=== PATIENT | male | born 1990 | race Caucasian/White ===

== ENCOUNTER 2016-11-22 10:04 | Emergency (ER) | payer OTHER ==
[2016-11-22] MEDS ORDERED: ONDANSETRON 4 MG ORAL DISINTEGRATING TAB (S0181) As Ordered ONE (10:29)
--- NOTE | 2016-11-22 11:08 | EDDOCDS ---
Nurse's Notes [facility] Name: Masood Young Age: 26 yrs Sex: Male : 1990 Arrival Date: 11/22/2016 Time: 10:04 Bed TR7 Private MD: DEJUSTIN BADILLO Diagnosis: Nausea and vomiting;Diarrhea, unspecified Presentation: 11/22 10:09 Presenting complaint: Patient states: he has had vomiting and diarrhea since this am. kcs Adult Sepsis Screening: The patient does not have new or worsening altered mentation. Patient's respiratory rate is less than 22. Systolic blood pressure is greater than 100. Patient has a qSOFA score of 0- Negative Sepsis Screen. Suicide/Homicide risk assessment- the patient denies having any suicidal and/or homicidal ideations and does not present with any other emotional, behavioral or mental health complaints. 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 Transition of care: patient was not received from another setting of care. 10:09 Acuity: MIRIAN Level 4 kcs 10:09 Method Of Arrival: Walkin/Carried/Asstd kcs Triage Assessment: 10:11 General: Appears comfortable, well developed, well nourished, well groomed, Behavior is kcs cooperative, pleasant. Pain: Denies pain. HIV screening NA for this visit active duty . Neurological: Level of Consciousness is awake, alert. Respiratory: Airway is patent Respiratory effort is even, unlabored, Respiratory pattern is regular, symmetrical. GI: Reports diarrhea, nausea, vomiting, Denies cramping. Derm: Skin is intact, is healthy with good turgor, Skin is dry, Skin is normal. Historical: - Allergies: No known drug Allergies; - Home Meds: 1. none - PMHx: none; - PSHx: none; - Social history: Smoking status: Patient states was never smoker of tobacco. No barriers to communication noted, The patient speaks fluent Cymraes. - Family history: Not pertinent. - : The pt / caregiver states he / she is not on anticoagulants. Home medication list is obtained from the patient. - Exposure Risk Screening:: None identified. Screenin:01 Screening information is obtained from the patient. Fall risk: No risks identified. bcj Assistance ADL's: requires no assistance with activities of daily living. Abuse/DV Screen: The patient / caregiver reports he/she is: not in a situation that causes fear, pain or injury. Nutritional screening: No deficits noted. Advance Directives: Currently, there is no health care proxy. home support is adequate. Assessment: 11:01 General: Appears in no apparent distress, comfortable, Behavior is cooperative. Pain: bcj Denies pain. GI: Abdomen is flat, non- distended Bowel sounds present X 4 quads. Abd is soft and non tender X 4 quads. Derm: Skin is pink, warm & dry. Vital Signs: 10:07 BP 163 / 101 RA Sitting (auto/lg); Pulse 88; Resp 16; Pulse Ox 98% ; Weight 92.99 kg; cmb Height 5 ft. 11 in. (180.34 cm); Pain 6/10; 10:07 BP 173 / 98 LA Sitting (auto/lg); Temp 98(O); cmb 10:07 Body Mass Index 28.59 (92.99 kg, 180.34 cm) cmb Vitals: 10:07 Log In Time: November 22, 2016 at 10:04. cmb ED Course: 10:06 Patient visited by Sosa Lopez. cmb 10:06 Patient moved to Waiting cmb 10:07 [facility] is Private Physician. cmb 10:08 Patient moved to Pre RCE cmb 10:10 Triage Initiated kcs 10:22 Patrick France PA is PHCP. btw 10:22 Rosy Camacho MD is Attending Physician. btw 10:22 Patient visited by Patrick France PA. btw 10:22 Patient moved to Triage 2 kcs 10:25 [facility] is Referral Physician. btw 10:49 Patient name changed from Masood\S\\S\Young\S\ to Masood\S\Dedrick\S\Young. EDMS 10:51 [facility] Payment Agreement was scanned into [employer] and attached to record. pm4 11:01 Appears agitated. Resting quietly. Awaiting disposition. bcj 11:01 Patient moved to TR7 ar3 11:01 The patient / caregiver is instructed regarding the plan of care and ED course. Patient bcj has correct armband on for positive identification. 11:01 No IV's were initiated during this patient's visit. No procedures done that require bcj assistance. 11:03 Patient visited by Leo Samuels RN. [facility] 11:08 Patient visited by Leo Samuels RN. [facility] Administered Medications: 10:30 Drug: Ondansetron ODT 4 mg [ondansetron 4 mg disintegrating tablet (1 tabs)] Route: PO; bcj Order Results: There are currently no results for this order. Outcome: 10:26 Discharge ordered by Provider. btw 11:01 Discharge Assessment: patient administered narcotics - no. The following High Risk j Discharge criteria are identified: None. Discharged to home ambulatory, with family. Condition: stable. No special radiology studies were completed. Property :Personal belongings accompany Pt. 11:08 Patient left the ED. [facility] Signatures: Dispatcher [employer] Myriam Ho RN RN Leo Kim RN RN Leslie Carmona, CASHIER CLERK CASHIER CLERK ar3 Patrick France PA PA btSosa Dennis Paul, Reg Reg pm4 MTDD
--- NOTE | 2016-11-22 11:08 | EDDOCDS ---
Physician Documentation [facility] Name: Masood Young Age: 26 yrs Sex: Male : 1990 Arrival Date: 11/22/2016 Time: 10:04 Bed TR7 [facility] Disposition: 11/22/16 10:26 Discharged to Home/Self Care. Impression: Nausea and vomiting, Diarrhea, unspecified. - Condition is Stable. - Discharge Instructions: Viral Gastroenteritis, [id number]. - Prescriptions for ZOFRAN ODT 4 mg - dissolve 1 tablet by ORAL route 4 times per day As needed do not chew, do not swallow whole; 10 tablet. - Medication Reconciliation, Local Pharmacy Hours form. - [facility]; When: Today; Reason: Further diagnostic work-up, Recheck today's complaints, Continuance of care. - Problem is new. - Symptoms are unchanged. Historical: - Allergies: No known drug Allergies; - Home Meds: 1. none - PMHx: none; - PSHx: none; - Social history: Smoking status: Patient states was never smoker of tobacco. No barriers to communication noted, The patient speaks fluent Egyptian. - Family history: Not pertinent. - : The pt / caregiver states he / she is not on anticoagulants. Home medication list is obtained from the patient. - Exposure Risk Screening:: None identified. Vital Signs: 11/22 10:07 BP 163 / 101 RA Sitting (auto/lg); Pulse 88; Resp 16; Pulse Ox 98% ; Weight 92.99 kg / cmb 205.01 lbs; Height 5 ft. 11 in. (180.34 cm); Pain 6/10; 10:07 BP 173 / 98 LA Sitting (auto/lg); Temp 98(O); cmb 10:07 Body Mass Index 28.59 (92.99 kg, 180.34 cm) cmb MDM: 10:25 Ondansetron ODT Oral Disintegrating Tablet 4 mg PO once ordered. btw 10:46 Financial registration complete. pm4 10:51 [facility] Payment Agreement was scanned into [employer] and attached to record. pm4 Administered Medications: 10:30 Drug: Ondansetron ODT 4 mg [ondansetron 4 mg disintegrating tablet (1 tabs)] Route: PO; [facility] Signatures: Myriam Brown RN RN kcs Johnson, Bruce, RN RN bcPatrick Monet PA PA btw Riky Yanez, Reg Reg pm4 The chart was reviewed and I authenticate all verbal orders and agree with the evaluation and treatment provided.Attachments: 10:51 [facility] Payment Agreement pm4 MTDD
--- NOTE | 2016-11-24 12:09 | EDDOCDS ---
Physician Documentation [facility] Name: Masood Young Age: 26 yrs Sex: Male : 1990 Arrival Date: 11/22/2016 Time: 10:04 Bed TR7 Private MD: [facility] Disposition: 11/22/16 10:26 Discharged to Home/Self Care. Impression: Nausea and vomiting, Diarrhea, unspecified. - Condition is Stable. - Discharge Instructions: Viral Gastroenteritis, [id number]. - Prescriptions for ZOFRAN ODT 4 mg - dissolve 1 tablet by ORAL route 4 times per day As needed do not chew, do not swallow whole; 10 tablet. - Medication Reconciliation, Local Pharmacy Hours form. - Follow up: [facility]; When: Today; Reason: Further diagnostic work-up, Recheck today's complaints, Continuance of care. - Problem is new. - Symptoms are unchanged. Historical: - Allergies: No known drug Allergies; - Home Meds: 1. none - PMHx: none; - PSHx: none; - Social history: Smoking status: Patient states was never smoker of tobacco. No barriers to communication noted, The patient speaks fluent Kosovan. - Family history: Not pertinent. - : The pt / caregiver states he / she is not on anticoagulants. Home medication list is obtained from the patient. - Exposure Risk Screening:: None identified. Vital Signs: 11/22 10:07 BP 163 / 101 RA Sitting (auto/lg); Pulse 88; Resp 16; Pulse Ox 98% ; Weight 92.99 kg / cmb 205.01 lbs; Height 5 ft. 11 in. (180.34 cm); Pain 6/10; 10:07 BP 173 / 98 LA Sitting (auto/lg); Temp 98(O); cmb 10:07 Body Mass Index 28.59 (92.99 kg, 180.34 cm) cmb MDM: 10:25 Ondansetron ODT Oral Disintegrating Tablet 4 mg PO once ordered. btw 10:46 Financial registration complete. pm4 10:51 [facility] Payment Agreement was scanned into [employer] and attached to record. pm4 12:36 T-Sheet-- Draft Copy was scanned into [employer] and attached to record. gb Administered Medications: 10:30 Drug: Ondansetron ODT 4 mg [ondansetron 4 mg disintegrating tablet (1 tabs)] Route: PO; natasha Signatures: Myriam Brown RN RN Leo Kim RN RN Tricia Emery, Reg Reg gb Patrick France PA PA btw Riky Yanez, Reg Reg pm4 The chart was reviewed and I authenticate all verbal orders and agree with the evaluation and treatment provided.Attachments: 10:51 [facility] Payment Agreement pm4 12:36 T-Sheet-- Draft Copy gb Chart Complete MTDD
--- NOTE | 2016-11-24 12:09 | EDDOCDS ---
Physician Documentation [facility] Name: Masood Young Age: 26 yrs Sex: Male : 1990 Arrival Date: 11/22/2016 Time: 10:04 Bed TR7 Private MD: [facility] Disposition: 11/22/16 10:26 Discharged to Home/Self Care. Impression: Nausea and vomiting, Diarrhea, unspecified. - Condition is Stable. - Discharge Instructions: Viral Gastroenteritis, [id number]. - Prescriptions for ZOFRAN ODT 4 mg - dissolve 1 tablet by ORAL route 4 times per day As needed do not chew, do not swallow whole; 10 tablet. - Medication Reconciliation, Local Pharmacy Hours form. - Follow up: [facility]; When: Today; Reason: Further diagnostic work-up, Recheck today's complaints, Continuance of care. - Problem is new. - Symptoms are unchanged. Historical: - Allergies: No known drug Allergies; - Home Meds: 1. none - PMHx: none; - PSHx: none; - Social history: Smoking status: Patient states was never smoker of tobacco. No barriers to communication noted, The patient speaks fluent South Korean. - Family history: Not pertinent. - : The pt / caregiver states he / she is not on anticoagulants. Home medication list is obtained from the patient. - Exposure Risk Screening:: None identified. Vital Signs: 11/22 10:07 BP 163 / 101 RA Sitting (auto/lg); Pulse 88; Resp 16; Pulse Ox 98% ; Weight 92.99 kg / cmb 205.01 lbs; Height 5 ft. 11 in. (180.34 cm); Pain 6/10; 10:07 BP 173 / 98 LA Sitting (auto/lg); Temp 98(O); cmb 10:07 Body Mass Index 28.59 (92.99 kg, 180.34 cm) cmb MDM: 10:25 Ondansetron ODT Oral Disintegrating Tablet 4 mg PO once ordered. btw 10:46 Financial registration complete. pm4 10:51 [facility] Payment Agreement was scanned into [employer] and attached to record. pm4 12:36 T-Sheet-- Draft Copy was scanned into [employer] and attached to record. gb Administered Medications: 10:30 Drug: Ondansetron ODT 4 mg [ondansetron 4 mg disintegrating tablet (1 tabs)] Route: PO; natasha Signatures: Myriam Brown RN RN Leo Kim RN RN Tricia Emery, Reg Reg gb Patrick France PA PA btw Riky Yanez, Reg Reg pm4 The chart was reviewed and I authenticate all verbal orders and agree with the evaluation and treatment provided.Attachments: 10:51 [facility] Payment Agreement pm4 12:36 T-Sheet-- Draft Copy gb Chart Complete MTDD
--- NOTE | 2016-11-24 12:09 | EDDOCDS ---
Nurse's Notes [facility] Name: Masood Young Age: 26 yrs Sex: Male : 1990 Arrival Date: 11/22/2016 Time: 10:04 Bed TR7 Private MD: CAJUSTIN BADILLO Diagnosis: Nausea and vomiting;Diarrhea, unspecified Presentation: 11/22 10:09 Presenting complaint: Patient states: he has had vomiting and diarrhea since this am. kcs Adult Sepsis Screening: The patient does not have new or worsening altered mentation. Patient's respiratory rate is less than 22. Systolic blood pressure is greater than 100. Patient has a qSOFA score of 0- Negative Sepsis Screen. Suicide/Homicide risk assessment- the patient denies having any suicidal and/or homicidal ideations and does not present with any other emotional, behavioral or mental health complaints. 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 Transition of care: patient was not received from another setting of care. 10:09 Acuity: MIRIAN Level 4 kcs 10:09 Method Of Arrival: Walkin/Carried/Asstd kcs Triage Assessment: 10:11 General: Appears comfortable, well developed, well nourished, well groomed, Behavior is kcs cooperative, pleasant. Pain: Denies pain. HIV screening NA for this visit active duty . Neurological: Level of Consciousness is awake, alert. Respiratory: Airway is patent Respiratory effort is even, unlabored, Respiratory pattern is regular, symmetrical. GI: Reports diarrhea, nausea, vomiting, Denies cramping. Derm: Skin is intact, is healthy with good turgor, Skin is dry, Skin is normal. Historical: - Allergies: No known drug Allergies; - Home Meds: 1. none - PMHx: none; - PSHx: none; - Social history: Smoking status: Patient states was never smoker of tobacco. No barriers to communication noted, The patient speaks fluent [place]. - Family history: Not pertinent. - : The pt / caregiver states he / she is not on anticoagulants. Home medication list is obtained from the patient. - Exposure Risk Screening:: None identified. Screenin:01 Screening information is obtained from the patient. Fall risk: No risks identified. bcj Assistance ADL's: requires no assistance with activities of daily living. Abuse/DV Screen: The patient / caregiver reports he/she is: not in a situation that causes fear, pain or injury. Nutritional screening: No deficits noted. Advance Directives: Currently, there is no health care proxy. home support is adequate. Assessment: 11:01 General: Appears in no apparent distress, comfortable, Behavior is cooperative. Pain: bcj Denies pain. GI: Abdomen is flat, non- distended Bowel sounds present X 4 quads. Abd is soft and non tender X 4 quads. Derm: Skin is pink, warm & dry. Vital Signs: 10:07 BP 163 / 101 RA Sitting (auto/lg); Pulse 88; Resp 16; Pulse Ox 98% ; Weight 92.99 kg; cmb Height 5 ft. 11 in. (180.34 cm); Pain 6/10; 10:07 BP 173 / 98 LA Sitting (auto/lg); Temp 98(O); cmb 10:07 Body Mass Index 28.59 (92.99 kg, 180.34 cm) cmb Vitals: 10:07 Log In Time: November 22, 2016 at 10:04. cmb ED Course: 10:06 Patient visited by Sosa Lopez. cmb 10:06 Patient moved to Waiting cmb 10:07 [facility] is Private Physician. cmb 10:08 Patient moved to Pre RCE cmb 10:10 Triage Initiated kcs 10:22 Patrick France PA is PHCP. btw 10:22 Rosy Camacho MD is Attending Physician. btw 10:22 Patient visited by Patrick France PA. btw 10:22 Patient moved to Triage 2 kcs 10:25 [facility] is Referral Physician. btw 10:49 Patient name changed from Masood\S\\S\Young\S\ to Masood\S\Dedrick\S\Young. EDMS 10:51 [facility] Payment Agreement was scanned into [employer] and attached to record. pm4 11:01 Appears agitated. Resting quietly. Awaiting disposition. bcj 11:01 Patient moved to TR7 ar3 11:01 The patient / caregiver is instructed regarding the plan of care and ED course. Patient bcj has correct armband on for positive identification. 11:01 No IV's were initiated during this patient's visit. No procedures done that require bcj assistance. 11:03 Patient visited by Leo Samuels RN. j 11:08 Patient visited by Leo Samuels RN. j 11:31 Patient visited by Leo Samuels RN. [facility] 12:36 T-Sheet-- Draft Copy was scanned into [employer] and attached to record. gb Administered Medications: 10:30 Drug: Ondansetron ODT 4 mg [ondansetron 4 mg disintegrating tablet (1 tabs)] Route: PO; j Order Results: There are currently no results for this order. Outcome: 10:26 Discharge ordered by Provider. bt 11:01 Discharge Assessment: patient administered narcotics - no. The following High Risk j Discharge criteria are identified: None. Discharged to home ambulatory, with family. Condition: stable. No special radiology studies were completed. Property :Personal belongings accompany Pt. 11:08 Patient left the ED. [facility] Signatures: Dispatcher [employer] EDMyriam Winter RN RN [facility] Leo Samuels, RN RN [facility] Tricia Mo, Reg Reg gb Leslie Hummel, [employer] ar3 Patrick France PA PA btw Sosa Lopez cmb Riky Yanez, Reg Reg pm4 Chart Complete MTDD
== END 2016-11-22 11:08 | disposition home or self-care (01) ==
LOC: M ED 10:04
DX: R11.2 Nausea with vomiting, unspecified (principal); R19.7 Diarrhea, unspecified

== ENCOUNTER 2017-01-11 00:02 | Emergency (ER) | payer OTHER ==
[2017-01-11] MEDS ORDERED: HALOPERIDOL 5 MG/ML VIAL (J1630) As Ordered ONE (00:10)
[2017-01-11] MEDS ORDERED: LORazepam 2 MG/ML VIAL (J2060) As Ordered ONE (00:10)
[2017-01-11 00:36] LABS: MEAN CORPUSCULAR HEMOGLOBIN 29.6 pg (27.0-33.0); MEAN CORPUSCULAR HGB CONC 33.1 g/dl (32.0-36.5); MEAN CORPUSCULAR VOLUME 89.7 fl (80.0-96.0); RED CELL DISTRIBUTION WIDTH 13.7 % (11.5-14.5); WHITE BLOOD COUNT 9.7 K/mm3 (4.0-10.0)
[2017-01-11 00:57] LABS: CONTROL LINE INT CTR LINE PRESENT; METHADONE URINE NEGATIVE (NEGATIVE); TRICYCLIC ANTIDEPRESS URINE NEGATIVE (NEGATIVE)
[2017-01-11 01:10] LABS: ALBUMIN 4.3 GM/DL (3.2-5.2); ALBUMIN/GLOBULIN RATIO 1.19 (1.00-1.93); ALKALINE PHOSPHATASE 89 U/L (45-117); ALT/SGPT 43 U/L (12-78); ANION GAP 8 MEQ/L (8-16); AST/SGOT 43 U/L (15-37); BILIRUBIN,DIRECT 0.1 MG/DL (0.0-0.2); BILIRUBIN,TOTAL 0.2 MG/DL (0.2-1.0); BLOOD UREA NITROGEN 16 MG/DL (7-18); CALCIUM LEVEL 8.7 MG/DL (8.5-10.1); CARBON DIOXIDE LEVEL 28 MEQ/L (21-32); CHLORIDE LEVEL 106 MEQ/L (98-107); CREATININE FOR GFR 1.02 MG/DL (0.70-1.30); GLOMERULAR FILTRATION RATE > 60.0 (>60); GLUCOSE, FASTING 95 MG/DL (70-105); SODIUM LEVEL 142 MEQ/L (136-145); TOTAL PROTEIN 7.9 GM/DL (6.4-8.2)
--- NOTE | 2017-01-11 13:56 | EDDOCDS ---
Nurse's Notes [facility] Name: Masood Young Age: 26 yrs Sex: Male : 1990 Arrival Date: 01/11/2017 Time: 00:02 Bed [facility] Private MD: Diagnosis: Alcohol use, unspecified with intoxication Presentation: 01/11 00:29 Presenting complaint: per PD - were called to residence after patient made threats to j kill self. was wandering at home. pt admits to ETOH tonight. denies street drug us. denies self injury. was combative on arrival with police and staff. Mental Health Triage Level: Level 3: The patient displays assaultive behavior and at risk for imminent acting out. Adult Sepsis Screening: The patient does not have new or worsening altered mentation. Patient's respiratory rate is less than 22. Systolic blood pressure is greater than 100. Patient has a qSOFA score of 0- Negative Sepsis Screen. Suicide/Homicide risk assessment- Patient denies SI and HI but presents with another emotional, behavioral or other mental health complaint. The patient reports that he/she has not been admitted to an inpatient mental health facility in the last 30 days. The patient reports that he/she has a recent or current history of substance abuse. The patient reports that he/she has no prior history of suicide attempt and/or organized plan. The patient reports that he/she has experienced a significant life altering event in the last 30 days. The patient reports that he/she has adequate social support. The patient reports he/she has no significant chronic medical condition(s). 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 Transition of care: patient was not received from another setting of care. 00:29 Acuity: [facility] Level 3 [facility] 00:29 Method Of Arrival: Walkin[facility]ried[facility] Triage Assessment: 00:34 General: Appears distressed, Behavior is agitated, combative, uncooperative. Pain: j Denies pain. HIV screening NA for this visit Offered previously. Neurological: Level of Consciousness is awake, alert. Derm: Skin is pink, warm & dry. Historical: - Allergies: no known allergies; - Home Meds: 1. none - PMHx: none; - PSHx: none; - Social history: Smoking status: Patient uses tobacco products, current every day smoker. No barriers to communication noted, The patient speaks fluent Macedonian, Speaks appropriately for age. - Family history: Not pertinent. - : The pt / caregiver states he / she is not on anticoagulants. Home medication list is obtained from the patient. - Exposure Risk Screening:: None identified. Screenin:36 Screening information is obtained from the patient. Fall risk: No risks identified. bcj Assistance ADL's: requires no assistance with activities of daily living. Abuse/DV Screen: The patient / caregiver reports he/she is: not in a situation that causes fear, pain or injury. Nutritional screening: No deficits noted. Advance Directives: Currently, there is no health care proxy. home support is adequate. Assessment: 00:36 General: Appears distressed, Behavior is uncooperative. Pain: Denies pain. Derm: Skin bcj is pink, warm & dry. 01:04 General: Appears in no apparent distress, to be sleeping. Respiratory: Airway is patent nn1 Respiratory effort is even, unlabored, Respiratory pattern is regular, symmetrical. Derm: Skin is pink, warm & dry. 01:34 General: Appears in no apparent distress, comfortable, to be sleeping. Behavior is nn1 quiet. Respiratory: Airway is patent Respiratory effort is even, unlabored, Respiratory pattern is regular, symmetrical. Derm: Skin is pink, warm & dry. 02:17 General: Patient snoring, in no distress at this time. Security maintained. . nn1 Respiratory: Airway is patent Respiratory effort is even, unlabored, Respiratory pattern is regular, symmetrical. Derm: Skin is pink, warm & dry. 02:55 Reassessment: Patient appears in no apparent distress at this time. General: Appears in nn1 no apparent distress, to be sleeping. Respiratory: No deficits noted. 04:00 General: Patient sleeping, resp even/unlabored. Security maintained. . nn1 05:09 General: Appears in no apparent distress, comfortable, to be sleeping. Behavior is nn1 quiet. Respiratory: Airway is patent Respiratory effort is even, unlabored, Respiratory pattern is regular, symmetrical. Derm: Skin is pink, warm & dry. 06:11 General: Patient awakens to verbal stimuli, patient cooperative and polite. Security nn1 monitoring.. Respiratory: Airway is patent Respiratory effort is even, unlabored, Respiratory pattern is regular, symmetrical. Derm: Skin is pink, warm & dry. 07:19 General: Report received from Angelica Barillas RN, awake and alert, eating breakfast tray, dwg cooperative presently.. 08:54 General: Asleep, awakens easily, members from his unit present, offers no complaints.. dwg 10:13 General: Awakes easily from sleep, does not recall most of last evenings events, denies dwg feeling suicidal, states a sharp increase in ETOH consumption about 2 months ago following a separation from his .. 11:18 General: Appears in no apparent distress, comfortable, to be sleeping. General: Pt ms18 sleeping at this time. Will continue to monitor pt. Respiratory: No deficits noted. Derm: Skin is pink, warm & dry. 12:11 General: Appears in no apparent distress, comfortable, Behavior is appropriate for age, ms18 cooperative. Pain: Denies pain. Neurological: Level of Consciousness is awake, alert, obeys commands, Oriented to person, place, time. Respiratory: No deficits noted. Derm: Skin is pink, warm & dry. 13:52 General: Appears in no apparent distress, comfortable, well nourished, well groomed, kpj Behavior is appropriate for age, cooperative, pleasant. Pain: Denies pain. Neurological: Level of Consciousness is awake, alert, Oriented to person, place, time. Respiratory: Airway is patent Respiratory effort is even, unlabored, Respiratory pattern is regular, symmetrical. GI: Denies nausea, vomiting. Derm: Skin is pink, warm & dry. Musculoskeletal: No deficits noted. 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 Referral Information: cl Evaluation referral is generated by a police agency: [facility] on .. The patient was referred for evaluation because Pt drinking tonight, agitated/threatening?. 13:04 [facility] Behavioral Health: The patient is not an established patient of [facility] Behavioral [facility]. Subjective: The patients chief complaint is PT states that last year in June he and his and she took their 2 year old daughter and moved. Since that time PT admits that he will have occasional SI but denies that he would ever act on the thoughts "I would never leave my daughter" PT states he knows of 4 people that have committed suicide and "I would never go out like that" PT states that he drinks every night but not always to intoxication and that he has had depression and anxiety since a kid. Yesterday PT was upset that he had to bring his dog to his ex so he could go out of state for a training and that he decided to go to a bar. PT's last memory is being at that bar and then waking up in the hospital. PT denies SI/HI or hallucinations at this time. PT denies hx of self harming or suicide attempt. . Delusions are denied. Patient's mood is appropriate. Hallucinations are denied. Mental Health history: alcohol abuse, anxiety, depression, suicide ideation occasional without plan since 06/2016 Mental Health Admissions: None. Current Outpatient Mental Health Services: Therapist / Agency: [facility]-PT states that he is trying to switch therapist as he does not like the one he currently has. . Current living environment is The patient currently lives alone. Patient presents to Emergency Department with the following symptoms within the past 2 weeks: alcohol abuse, erratic appetite depressed mood, labile mood, sleep disturbance - erratic suicidal ideation with no plan. Substance abuse: Patient uses beer, of wine, of liquor, daily. Mental status exam: Patients appearance is appropriate, Patient's behavior is cooperative, Speech is normal. Affect is appropriate. Mood is appropriate. Hallucinations are denied. Appetite is erratic Memory is good. Energy level is normal. Content of thought is normal. Thought process is intact. Cognitive level is oriented to person, place, time and situation Patient's insight is fair. Judgement is fair. Rapport with interviewer is good. Suicidal Ideation is denied. Homicidal ideation is denied. Disposition: Medically cleared for disposition by Rosy Camacho MD Psychiatric Consult is deferred per ED physician, Dr Hidalgo. The patient has a safe destination which is transported home by his [facility]. [facility] Admission Criteria: Not Applicable. DSM-V Differential Diagnosis: Alcohol Intoxication severe. Insurance Pre-Certification: Not Required, . Psych: 00:39 Mental Health Triage Level: Level 3: The patient displays assaultive behavior and at community hospital risk for imminent acting out. 00:39 Subjective: The patients chief complaint is wants electrical timing device calibrator to kill him. Delusions are denied. Patient's mood is angry, Hallucinations are denied. 00:39 Objective: Patient is aggressive, agitated, combative, Speech is normal. Affect is appropriate. 00:39 Substance abuse: Patient uses Vital Signs: 00:34 BP 142 / 85; Pulse 95; Resp 16; Temp 98; Pulse Ox 97% on R/A; Weight 111.13 kg; Height community hospital 6 ft. 0 in. (182.88 cm); Pain 0/10; 00:47 BP 149 / 78; Pulse 100; Resp 18; Pulse Ox 94% on R/A; bcj 01:03 BP 120 / 55; Pulse 97; Resp 18; Pulse Ox 94% on R/A; nn1 01:15 BP 116 / 56; Pulse 93; Resp 18; Pulse Ox 93% on R/A; nn1 01:30 BP 105 / 54; Pulse 94; Resp 18; Pulse Ox 94% on R/A; nn1 01:45 BP 109 / 56; Pulse 97; Resp 20; Pulse Ox 92% on R/A; nn1 02:00 BP 131 / 58; Pulse 97; Resp 18; Pulse Ox 93% on R/A; nn1 02:15 BP 119 / 57; Pulse 93; Resp 18; Pulse Ox 94% on R/A; nn1 02:30 BP 107 / 58; Pulse 93; Resp 18; Pulse Ox 94% on R/A; nn1 06:15 BP 108 / 73; Pulse 93; Resp 18; Temp 97.1(T); Pulse Ox 97% ; Pain 0/10; mas 10:15 BP 142 / 86; Pulse 91; Resp 16; Temp 97.2(T); Pulse Ox 98% on R/A; dwg 13:52 BP 164 / 86; Pulse 107; Resp 16; Temp 97.5(O); Pulse Ox 97% on R/A; Pain 0/10; kpj 00:34 Body Mass Index 33.23 (111.13 kg, 182.88 cm) community hospital Vitals: 00:34 Log In time N/A- police car arrival. [facility] ED Course: 00:03 Patient visited by Clair Booth PCA. rs6 00:03 Patient moved to Waiting rs6 00:03 Patient moved to [facility] rs6 00:05 Meño Newman MD is Attending Physician. br1 00:07 Patient visited by Meño Newman MD. br1 00:16 Patient visited by Clair Booth PCA. rs6 00:33 Triage Initiated bcj 00:36 Appears restless. awaiting re-evaluation by ER physician. bcj 00:36 The patient / caregiver is instructed regarding the plan of care and ED course. Patient bcj has correct armband on for positive identification. Placed in gown. Placed in psych safe attire. Bed in low position. Adult w/ patient. Security observing. 00:36 Labs drawn. (by ED staff). Sent per order to lab. Urine collected. Clean catch [facility] hospital specimen. Urine specimen sent to lab. 00:41 Patient visited by Leo Samuels RN. bcj 00:48 Patient visited by Leo Samuels RN. j 00:55 Pt greeted and oriented to ED. Patient advised of names of staff involved in care, [facility] location of call hernandez, wait times and NPO status. Accompanied by Law Enforcement, [place] on , Patient has correct armband on for positive identification. Placed in psych safe attire. Bed in low position. Call light in reach. Side rails up X2. Security observing. Property removed, inventory done, secured in belongings bag- Placed in locker 5. Door closed. Noise minimized. Moved to private room. Verbal reassurance given. Warm blanket given. Pillow given. Psych Safety Check: Location: Psych Room. Visual Assessment: pt agitated, uncooperative upon arrival. 01:09 Patient visited by Sherley Barillas RN. nn1 01:17 Patient visited by Adams Paul. mas 01:32 Patient visited by Adasm Paul. mas 01:48 Patient visited by Adams Paul. mas 02:02 Patient visited by Adams Paul. mas 02:19 Patient visited by Adams Paul. mas 02:32 Patient visited by Adams Paul. mas 02:46 Patient visited by Adams Paul. mas 03:02 Patient visited by Adams Paul. mas 03:24 Patient visited by Adams Paul. mas 03:39 Patient visited by Adams Paul. mas 03:51 Patient visited by Adams Paul. mas 04:00 Patient visited by Adams Paul. mas 04:15 Patient visited by Adams Paul. mas 04:37 Patient visited by Adams Paul. mas 04:55 Patient visited by Adams Paul. mas 05:00 Patient visited by Adams Paul. mas 05:20 Patient visited by Jonathan Liu. rn1 05:39 Patient visited by Adams Paul. mas 05:45 Patient visited by Adams Paul. mas 06:00 Patient visited by Adams Paul. mas 06:15 Patient visited by Adams Paul. mas 06:32 Patient visited by Adams Paul. mas 06:47 Patient visited by Adams Paul. mas 07:13 Attending Physician role handed off by Meño Newman MD sd1 07:13 Rosy Camacho MD is Attending Physician. sd1 07:20 Patient visited by Yeyo Rodriguez RN. dwg 07:37 Patient visited by Riky Crocker Security Aide. pjf 07:50 Patient visited by Riky Crocker Security Bhakti. pjf 08:08 Patient visited by iRky Crocker Security Aide. pjf 08:20 Patient visited by Riky Crocker Security Aide. pjf 08:41 Patient visited by Riky Crocker Security Aide. pjf 08:54 Patient visited by Riky Crocker Security Aide. pjf 08:54 Patient visited by Yeyo Rodriguez RN. dwg 09:14 Patient visited by Riky Crocker Security Aide. pjf 09:31 Patient visited by Riky Crocker Security Aide. pjf 09:45 Psych Safety Check: Location: Psych Room. Visual Assessment: Cooperative. pjf 10:00 Patient visited by Riky Crocker Security Aidal. pjf 10:15 Patient visited by Riky Crocker Security Aide. pjf 10:15 Patient visited by Yeyo Rodriguez RN. dwg 10:32 Patient visited by Riky Crocker Security Aide. pjf 10:44 Patient visited by Riky Crocker Security Aide. pjf 11:00 Patient visited by Praedep Artis PCA. jrd 11:00 Psych Safety Check: Location: Psych Room. Visual Assessment:. jrd 11:01 Patient visited by Pradeep Artis PCA. jrd 11:14 Patient visited by Pradeep Artis PCA. jrd 11:15 Psych Safety Check: Location: Psych Room. Visual Assessment: Cooperative. jrd 11:18 Patient visited by Julia Post RN. ms18 11:29 Patient visited by Pradeep Artis PCA. jrd 11:30 Psych Safety Check: Location: Psych Room. Visual Assessment: Cooperative. jrd 11:45 Psych Safety Check: Location: Psych Room. Visual Assessment: Cooperative. jrd 12:00 Psych Safety Check: Location: Psych Room. Visual Assessment: Cooperative. jrd 12:11 Patient visited by Julia Post RN. ms18 12:15 Psych Safety Check: Location: Psych Room. Visual Assessment: Cooperative. jrd 12:38 M[facility] Legal paperwork was scanned into [employer] and attached to record. jfb 12:45 Psych Safety Check: Location: Psych Room. Visual Assessment:. jrd 13:00 Psych Safety Check: Location: Psych Room. Visual Assessment: Cooperative. nb2 13:03 [facility] sd1 13:08 Patient visited by Salima Valdovinos. nb2 13:15 Patient visited by Salima Valdovinos. nb2 13:15 Psych Safety Check: Location: Psych Room. Visual Assessment: Cooperative. nb2 13:30 Psych Safety Check: Location: Psych Room. Visual Assessment: Cooperative. jrd 13:34 Patient visited by Pradeep Artis PCA. jrd 13:52 No apparent distress. Resting quietly. j 13:52 The patient / caregiver is instructed regarding the plan of care and ED course. Diet: [facility] Patient given regular meal. Tolerated well. 13:52 No IV's were initiated during this patient's visit. No procedures done that require [facility] assistance. Restraints: 00:40 Restraint order obtained from Meño Newman MD [facility] 00:40 Implementation: Restrained without trying less restrictive methods because pt was physically combative, Restraints applied at 12:30 00:40 Notification of restraint use: Charge Nurse. 00:40 Vital Signs: See Trend VS for complete VS information 00:40 Assessment: Respirations: Regular Skin Integrity: Intact Circulation: Unrestricted. ROM: ROM exercises are contraindicated at this time. Toileting: offered, provided, Mental Status: Alert. 01:08 Restraints discontinued at 00:50 at the order of Meño Newman MD Patient was given nn1 chemical restraint. No order to discontinue required. Administered Medications: 00:30 Drug: -Haloperidol Lactate 5 mg [haloperidol lactate 5 mg/mL injection solution (1 mL)] bcj Route: IM; Site: right gluteus; 00:30 Drug: LORazepam 2 mg [lorazepam 2 mg/mL injection solution (1 mL)] Route: IM; Site: bcj right gluteus; Attachments: 12:38 E Legal paperwork jfb Order Results: Lab Order: Acetaminophen Level; SPEC'M 01/11/17 00:28 Test: ACETAMINOPHEN LEVEL; Value: < 2.0; Range: 10.0-30.0; Abnormal: Below low normal; Units: UG/ML; Status: F Lab Order: Basic Metabolic Profile; SPEC'M 01/11/17 00:28 Test: GLUCOSE, FASTING; Value: 95; Range: 70-105; Units: MG/DL; Status: F Test: BLOOD UREA NITROGEN; Value: 16; Range: 7-18; Units: MG/DL; Status: F Test: CREATININE FOR GFR; Value: 1.02; Range: 0.70-1.30; Units: MG/DL; Status: F Test: GLOMERULAR FILTRATION RATE; Value: > 60.0; Range: >60; Status: F Test: SODIUM LEVEL; Value: 142; Range: 136-145; Units: MEQ/L; Status: F Test: POTASSIUM SERUM; Value: 4.0; Range: 3.5-5.1; Units: MEQ/L; Status: F Test: CHLORIDE LEVEL; Value: 106; Range: 98-107; Units: MEQ/L; Status: F Test: CARBON DIOXIDE LEVEL; Value: 28; Range: 21-32; Units: MEQ/L; Status: F Test: ANION GAP; Value: 8; Range: 8-16; Units: MEQ/L; Status: F Test: CALCIUM LEVEL; Value: 8.7; Range: 8.5-10.1; Units: MG/DL; Status: F Test Note: ; Units are mL/min/1.73 m2 Chronic Kidney Disease Staging per NKF: Stage I & II GFR >=60 Normal to Mildly Decreased Stage III GFR 30-59 Moderately Decreased Stage IV GFR 15-29 Severely Decreased Stage V GFR <15 Very Little GFR Left ESRD GFR <15 on ASSEMBLY DEPARTMENT SUPERVISOR Lab Order: Complete Blood Count; SPEC'M 01/11/17 00:28 Test: WHITE BLOOD COUNT; Value: 9.7; Range: 4.0-10.0; Units: K/mm3; Status: F Test: RED BLOOD COUNT; Value: 5.13; Range: 4.30-6.10; Units: M/mm3; Status: F Test: HEMOGLOBIN; Value: 15.2; Range: 14.0-18.0; Units: g/dl; Status: F Test: HEMATOCRIT; Value: 46.0; Range: 42.0-52.0; Units: %; Status: F Test: MEAN CORPUSCULAR VOLUME; Value: 89.7; Range: 80.0-96.0; Units: fl; Status: F Test: MEAN CORPUSCULAR HEMOGLOBIN; Value: 29.6; Range: 27.0-33.0; Units: pg; Status: F Test: MEAN CORPUSCULAR HGB CONC; Value: 33.1; Range: 32.0-36.5; Units: g/dl; Status: F Test: RED CELL DISTRIBUTION WIDTH; Value: 13.7; Range: 11.5-14.5; Units: %; Status: F Test: PLATELET COUNT, AUTOMATED; Value: 337; Range: 150-450; Units: k/mm3; Status: F Lab Order: Drug Eval Toxicology ED Only; SPEC'M 01/11/17 00:28 Test: AMPHETAMINES LEVEL URINE; Value: NEGATIVE; Range: NEGATIVE; Status: F Test: BARBITURATES URINE; Value: NEGATIVE; Range: NEGATIVE; Status: F Test: BENZODIAZEPINES URINE; Value: NEGATIVE; Range: NEGATIVE; Status: F Test: CANNABINOIDS URINE; Value: NEGATIVE; Range: NEGATIVE; Status: F Test: COCAINE METABOLITE URINE; Value: NEGATIVE; Range: NEGATIVE; Status: F Test: METHADONE URINE; Value: NEGATIVE; Range: NEGATIVE; Status: F Test: OPIATES URINE; Value: NEGATIVE; Range: NEGATIVE; Status: F Test: TRICYCLIC ANTIDEPRESS URINE; Value: NEGATIVE; Range: NEGATIVE; Status: F Test Note: ; ALL PRESUMPTIVE POSITIVE FINDINGS ARE UNCONFIRMED NORMAL VALUES THRESHOLD IN NG/ML AMPHETAMINES 1000 METHAMPHETAMINES 1000 BARBITURATES 300 BENZODIAZEPINES 300 CANNABINOIDS (THC) 50 COCAINE METABOLITE 300 METHADONE 300 OPIATES 300 PHENCYCLIDINE 25 TRICYCLIC ANTIDEPRESSANTS 1000 RESULTS ARE FOR MEDICAL PURPOSES ONLY. ALL URINE SPECIMENS WILL BE SAVED FOR 3 DAYS. IF CONFIRMATION OF A PRESUMPTIVE POSTIVE SCREEN RESULT IS DESIRED, CALL CHEMISTRY ([phone]) AND REQUEST URINE TO BE SENT TO REFERENCE LAB. FOR A LIST OF CLOSELY RELATED COMPOUNDS PLEASE CALL THE LAB. Lab Order: Ethyl Alcohol (ethanol); SPEC'M 01/11/17 00:28 Test: ETHYL ALCOHOL (ETHANOL); Value: 0.350; Range: 0.000-0.010; Abnormal: Above high normal; Units: %; Status: F Lab Order: Liver Profile; SPEC'M 01/11/17 00:28 Test: AST/SGOT; Value: 43; Range: 15-37; Abnormal: Above high normal; Units: U/L; Status: F Test: ALT/SGPT; Value: 43; Range: 12-78; Units: U/L; Status: F Test: ALKALINE PHOSPHATASE; Value: 89; Range: 45-117; Units: U/L; Status: F Test: BILIRUBIN,TOTAL; Value: 0.2; Range: 0.2-1.0; Units: MG/DL; Status: F Test: BILIRUBIN,DIRECT; Value: 0.1; Range: 0.0-0.2; Units: MG/DL; Status: F Test: TOTAL PROTEIN; Value: 7.9; Range: 6.4-8.2; Units: GM/DL; Status: F Test: ALBUMIN; Value: 4.3; Range: 3.2-5.2; Units: GM/DL; Status: F Test: ALBUMIN/GLOBULIN RATIO; Value: 1.19; Range: 1.00-1.93; Status: F Lab Order: Salicylate Level; SPEC'M 01/11/17 00:28 Test: SALICYLATE LEVEL; Value: 2.9; Range: 5.0-30.0; Abnormal: Below low normal; Units: MG/DL; Status: F Lab Order: Thyroid Stimulating Hormone; SPEC'M 01/11/17 00:28 Test: THYROID STIMULATING HORMONE; Value: 3.040; Range: 0.358-3.740; Units: uIU/ML; Status: F Outcome: 13:03 Discharge ordered by Provider. sd1 13:52 Discharge Assessment: Patient awake, alert and oriented x 3. No cognitive and/or kpj functional deficits noted. Patient verbalized understanding of disposition instructions. patient administered narcotics - yes. Pt provided with safe discharge. The following High Risk Discharge criteria are identified: None. Discharged to home ambulatory, with specialist Any. Condition: stable. Discharge instructions given to patient, Instructed on discharge instructions, follow up and referral plans. Demonstrated understanding of instructions, Pt was receptive of discharge instructions/ teaching. No special radiology studies were completed. 13:56 Patient left the ED. [facility] Signatures: Rosy Camacho MD MD sd1 Yeyo Rodriguez, RN RN Janessa Palencia, RN RN j Leo Samuels, RN RN renea Fischer, Charli, PSA PSA cl Lizzette, Riky, Security Aide Esauf Meño Newman MD MD br1 Caren Prescott, PSA PSA jfAdams [facility] Mallory,RN RN ms18 Pradeep Artis, VEHICLE LEASING AND RENTAL MANAGER VEHICLE LEASING AND RENTAL MANAGER jrd Clair Booth, VEHICLE LEASING AND RENTAL MANAGER VEHICLE LEASING AND RENTAL MANAGER rs6 Jonathan Liu rn1 Sherley Barillas,RN RN nn1 Salima Valdovinos2 Corrections: (The following items were deleted from the chart) 13:27 13:25 Psych Safety Check: Location: Psych Room. Visual Assessment: kwaku Garza 13:31 13:30 Psych Safety Check: Location: Psych Room. Visual Assessment: kwaku Garza MTDD
--- NOTE | 2017-01-11 13:56 | EDDOCDS ---
Physician Documentation [facility] Name: Masood Young Age: 26 yrs Sex: Male : 1990 Arrival Date: 01/11/2017 Time: 00:02 Bed [facility] Private MD: Disposition: 01/11/17 13:03 Discharged to Home/Self Care. Impression: Alcohol use, unspecified with intoxication. - Condition is Stable. - Discharge Instructions: Alcohol Intoxication. - Medication Reconciliation, Local Pharmacy Hours form. - Follow up: Ivania Cai, [facility]; When: Upon discharge from the Emergency Department. - Problem is new. - Symptoms are resolved. Historical: - Allergies: no known allergies; - Home Meds: 1. none - PMHx: none; - PSHx: none; - Social history: Smoking status: Patient uses tobacco products, current every day smoker. No barriers to communication noted, The patient speaks fluent [place], Speaks appropriately for age. - Family history: Not pertinent. - : The pt / caregiver states he / she is not on anticoagulants. Home medication list is obtained from the patient. - Exposure Risk Screening:: None identified. Vital Signs: 01/11 00:34 BP 142 / 85; Pulse 95; Resp 16; Temp 98; Pulse Ox 97% on R/A; Weight 111.13 kg / 245 bcj lbs; Height 6 ft. 0 in. (182.88 cm); Pain 0/10; 00:47 BP 149 / 78; Pulse 100; Resp 18; Pulse Ox 94% on R/A; bcj 01:03 BP 120 / 55; Pulse 97; Resp 18; Pulse Ox 94% on R/A; nn1 01:15 BP 116 / 56; Pulse 93; Resp 18; Pulse Ox 93% on R/A; nn1 01:30 BP 105 / 54; Pulse 94; Resp 18; Pulse Ox 94% on R/A; nn1 01:45 BP 109 / 56; Pulse 97; Resp 20; Pulse Ox 92% on R/A; nn1 02:00 BP 131 / 58; Pulse 97; Resp 18; Pulse Ox 93% on R/A; nn1 02:15 BP 119 / 57; Pulse 93; Resp 18; Pulse Ox 94% on R/A; nn1 02:30 BP 107 / 58; Pulse 93; Resp 18; Pulse Ox 94% on R/A; nn1 06:15 BP 108 / 73; Pulse 93; Resp 18; Temp 97.1(T); Pulse Ox 97% ; Pain 0/10; mas 10:15 BP 142 / 86; Pulse 91; Resp 16; Temp 97.2(T); Pulse Ox 98% on R/A; dwg 13:52 BP 164 / 86; Pulse 107; Resp 16; Temp 97.5(O); Pulse Ox 97% on R/A; Pain 0/10; kpj 00:34 Body Mass Index 33.23 (111.13 kg, 182.88 cm) bcj MDM: 00:05 Consult PFS/PSA/[employer] Cook ordered. br1 00:05 Consult PFS/PSA/[employer] Cook: Patient's case requires discussion with on-call [facility] Psychiatrist ordered. 00:05 PSA/PFS to call Nursing Sales Analyst, to enter patient data on [facility] Safe Act if patient br1 involuntarily admitted or transferred for SI or HI ordered. 00:05 Confirm accurate psychiatric medication list and times of last dosage ordered. br1 00:05 Detain Pt Until Medically/PFS Cleared ordered. br1 00:06 -Haloperidol Lactate 5 mg IM once ordered. br1 00:06 LORazepam 2 mg IM once ordered. br1 00:06 Restraints, Adult: Chemical - Meds as ordered (poses imminent danger of harming br1 others). May use manual restraints to ensure safe admin. of meds. Pt. monitoring for min. of 2 hrs per RN policy. ordered. 00:07 Acetaminophen Level Ordered. EDMS 00:07 Basic Metabolic Profile Ordered. EDMS 00:07 Complete Blood Count Ordered. EDMS 00:07 Drug Eval Toxicology ED Only Ordered. EDMS 00:07 Ethyl Alcohol (ethanol) Ordered. EDMS 00:07 Liver Profile Ordered. EDMS 00:07 Salicylate Level Ordered. EDMS 00:07 Thyroid Stimulating Hormone Ordered. EDMS 00:42 Consult PFS/PSA/[employer] Cook complete. bcj 00:43 Consult PFS/PSA/[employer] Cook: Patient's case requires discussion with on-call [facility] Psychiatrist complete. 01:33 Acetaminophen Level Reviewed. br1 01:33 Ethyl Alcohol (ethanol) Reviewed. br1 01:33 Liver Profile Reviewed. br1 01:33 Salicylate Level Reviewed. br1 01:33 Basic Metabolic Profile Reviewed. br1 01:33 Complete Blood Count Reviewed. br1 01:33 Drug Eval Toxicology ED Only Reviewed. br1 01:33 Thyroid Stimulating Hormone Reviewed. br1 04:20 REGULAR DIET PLASTIC BEST+DIET ordered. EDMS 09:39 Financial registration complete. mm15 11:20 REGULAR DIET PLASTIC BEST+DIET ordered. EDMS 12:38 M[facility] Legal paperwork was scanned into [employer] and attached to record. jfb 13:14 PSA/PFS to call Nursing Sales Analyst, to enter patient data on [place] Safe Act if patient jfb involuntarily admitted or transferred for SI or HI complete. Administered Medications: 00:30 Drug: -Haloperidol Lactate 5 mg [haloperidol lactate 5 mg/mL injection solution (1 mL)] [facility] Route: IM; Site: right gluteus; 00:30 Drug: LORazepam 2 mg [lorazepam 2 mg/mL injection solution (1 mL)] Route: IM; Site: bcj right gluteus; Signatures: Dispatcher [employer] EDMO Rosy Camacho MD MD sd1 Janessa Burr, RN RN Leo Em RN RN Meño Albarran MD MD br1 Caren Prescott, PSA PSA jfb Christin Acosta mm15 MTDD
--- NOTE | 2017-01-13 14:56 | EDDOCDS ---
Nurse's Notes [facility] Name: Masood Young Age: 26 yrs Sex: Male : 1990 Arrival Date: 01/11/2017 Time: 00:02 Bed [facility] Private MD: Diagnosis: Alcohol use, unspecified with intoxication Presentation: 01/11 00:29 Presenting complaint: per PD - were called to residence after patient made threats to j kill self. was wandering at home. pt admits to ETOH tonight. denies street drug us. denies self injury. was combative on arrival with police and staff. Mental Health Triage Level: Level 3: The patient displays assaultive behavior and at risk for imminent acting out. Adult Sepsis Screening: The patient does not have new or worsening altered mentation. Patient's respiratory rate is less than 22. Systolic blood pressure is greater than 100. Patient has a qSOFA score of 0- Negative Sepsis Screen. Suicide/Homicide risk assessment- Patient denies SI and HI but presents with another emotional, behavioral or other mental health complaint. The patient reports that he/she has not been admitted to an inpatient mental health facility in the last 30 days. The patient reports that he/she has a recent or current history of substance abuse. The patient reports that he/she has no prior history of suicide attempt and/or organized plan. The patient reports that he/she has experienced a significant life altering event in the last 30 days. The patient reports that he/she has adequate social support. The patient reports he/she has no significant chronic medical condition(s). 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 Transition of care: patient was not received from another setting of care. 00:29 Acuity: MIRIAN Level 3 [facility] 00:29 Method Of Arrival: Walkin/Carried/Asstd [facility] Triage Assessment: 00:34 General: Appears distressed, Behavior is agitated, combative, uncooperative. Pain: j Denies pain. HIV screening NA for this visit Offered previously. Neurological: Level of Consciousness is awake, alert. Derm: Skin is pink, warm & dry. Historical: - Allergies: no known allergies; - Home Meds: 1. none - PMHx: none; - PSHx: none; - Social history: Smoking status: Patient uses tobacco products, current every day smoker. No barriers to communication noted, The patient speaks fluent Divehi, Speaks appropriately for age. - Family history: Not pertinent. - : The pt / caregiver states he / she is not on anticoagulants. Home medication list is obtained from the patient. - Exposure Risk Screening:: None identified. Screenin:36 Screening information is obtained from the patient. Fall risk: No risks identified. bcj Assistance ADL's: requires no assistance with activities of daily living. Abuse/DV Screen: The patient / caregiver reports he/she is: not in a situation that causes fear, pain or injury. Nutritional screening: No deficits noted. Advance Directives: Currently, there is no health care proxy. home support is adequate. Assessment: 00:36 General: Appears distressed, Behavior is uncooperative. Pain: Denies pain. Derm: Skin bcj is pink, warm & dry. 01:04 General: Appears in no apparent distress, to be sleeping. Respiratory: Airway is patent nn1 Respiratory effort is even, unlabored, Respiratory pattern is regular, symmetrical. Derm: Skin is pink, warm & dry. 01:34 General: Appears in no apparent distress, comfortable, to be sleeping. Behavior is nn1 quiet. Respiratory: Airway is patent Respiratory effort is even, unlabored, Respiratory pattern is regular, symmetrical. Derm: Skin is pink, warm & dry. 02:17 General: Patient snoring, in no distress at this time. Security maintained. . nn1 Respiratory: Airway is patent Respiratory effort is even, unlabored, Respiratory pattern is regular, symmetrical. Derm: Skin is pink, warm & dry. 02:55 Reassessment: Patient appears in no apparent distress at this time. General: Appears in nn1 no apparent distress, to be sleeping. Respiratory: No deficits noted. 04:00 General: Patient sleeping, resp even/unlabored. Security maintained. . nn1 05:09 General: Appears in no apparent distress, comfortable, to be sleeping. Behavior is nn1 quiet. Respiratory: Airway is patent Respiratory effort is even, unlabored, Respiratory pattern is regular, symmetrical. Derm: Skin is pink, warm & dry. 06:11 General: Patient awakens to verbal stimuli, patient cooperative and polite. Security nn1 monitoring.. Respiratory: Airway is patent Respiratory effort is even, unlabored, Respiratory pattern is regular, symmetrical. Derm: Skin is pink, warm & dry. 07:19 General: Report received from Angelica Barillas RN, awake and alert, eating breakfast tray, dwg cooperative presently.. 08:54 General: Asleep, awakens easily, members from his unit present, offers no complaints.. dwg 10:13 General: Awakes easily from sleep, does not recall most of last evenings events, denies dwg feeling suicidal, states a sharp increase in ETOH consumption about 2 months ago following a separation from his .. 11:18 General: Appears in no apparent distress, comfortable, to be sleeping. General: Pt ms18 sleeping at this time. Will continue to monitor pt. Respiratory: No deficits noted. Derm: Skin is pink, warm & dry. 12:11 General: Appears in no apparent distress, comfortable, Behavior is appropriate for age, ms18 cooperative. Pain: Denies pain. Neurological: Level of Consciousness is awake, alert, obeys commands, Oriented to person, place, time. Respiratory: No deficits noted. Derm: Skin is pink, warm & dry. 13:52 General: Appears in no apparent distress, comfortable, well nourished, well groomed, kpj Behavior is appropriate for age, cooperative, pleasant. Pain: Denies pain. Neurological: Level of Consciousness is awake, alert, Oriented to person, place, time. Respiratory: Airway is patent Respiratory effort is even, unlabored, Respiratory pattern is regular, symmetrical. GI: Denies nausea, vomiting. Derm: Skin is pink, warm & dry. Musculoskeletal: No deficits noted. 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 Referral Information: cl Evaluation referral is generated by a police agency: [facility] on .. The patient was referred for evaluation because Pt drinking tonight, agitated/threatening?. 13:04 [facility] Behavioral Health: The patient is not an established patient of [facility]. Subjective: The patients chief complaint is PT states that last year in June he and his and she took their 2 year old daughter and moved. Since that time PT admits that he will have occasional SI but denies that he would ever act on the thoughts "I would never leave my daughter" PT states he knows of 4 people that have committed suicide and "I would never go out like that" PT states that he drinks every night but not always to intoxication and that he has had depression and anxiety since a kid. Yesterday PT was upset that he had to bring his dog to his ex so he could go out of state for a training and that he decided to go to a bar. PT's last memory is being at that bar and then waking up in the hospital. PT denies SI/HI or hallucinations at this time. PT denies hx of self harming or suicide attempt. . Delusions are denied. Patient's mood is appropriate. Hallucinations are denied. Mental Health history: alcohol abuse, anxiety, depression, suicide ideation occasional without plan since 06/2016 Mental Health Admissions: None. Current Outpatient Mental Health Services: Therapist / Agency: -PT states that he is trying to switch therapist as he does not like the one he currently has. . Current living environment is The patient currently lives alone. Patient presents to Emergency Department with the following symptoms within the past 2 weeks: alcohol abuse, erratic appetite depressed mood, labile mood, sleep disturbance - erratic suicidal ideation with no plan. Substance abuse: Patient uses beer, of wine, of liquor, daily. Mental status exam: Patients appearance is appropriate, Patient's behavior is cooperative, Speech is normal. Affect is appropriate. Mood is appropriate. Hallucinations are denied. Appetite is erratic Memory is good. Energy level is normal. Content of thought is normal. Thought process is intact. Cognitive level is oriented to person, place, time and situation Patient's insight is fair. Judgement is fair. Rapport with interviewer is good. Suicidal Ideation is denied. Homicidal ideation is denied. Disposition: Medically cleared for disposition by Rosy Camacho MD Psychiatric Consult is deferred per ED physician, Dr Hidalgo. The patient has a safe destination which is transported home by his [facility]. [facility] Admission Criteria: Not Applicable. DSM-V Differential Diagnosis: Alcohol Intoxication severe. Insurance Pre-Certification: Not Required, . Psych: 00:39 Mental Health Triage Level: Level 3: The patient displays assaultive behavior and at [facility] risk for imminent acting out. 00:39 Subjective: The patients chief complaint is wants turbine attendant to kill him. Delusions are denied. Patient's mood is angry, Hallucinations are denied. 00:39 Objective: Patient is aggressive, agitated, combative, Speech is normal. Affect is appropriate. 00:39 Substance abuse: Patient uses Vital Signs: 00:34 BP 142 / 85; Pulse 95; Resp 16; Temp 98; Pulse Ox 97% on R/A; Weight 111.13 kg; Height [facility] 6 ft. 0 in. (182.88 cm); Pain 0/10; 00:47 BP 149 / 78; Pulse 100; Resp 18; Pulse Ox 94% on R/A; bcj 01:03 BP 120 / 55; Pulse 97; Resp 18; Pulse Ox 94% on R/A; nn1 01:15 BP 116 / 56; Pulse 93; Resp 18; Pulse Ox 93% on R/A; nn1 01:30 BP 105 / 54; Pulse 94; Resp 18; Pulse Ox 94% on R/A; nn1 01:45 BP 109 / 56; Pulse 97; Resp 20; Pulse Ox 92% on R/A; nn1 02:00 BP 131 / 58; Pulse 97; Resp 18; Pulse Ox 93% on R/A; nn1 02:15 BP 119 / 57; Pulse 93; Resp 18; Pulse Ox 94% on R/A; nn1 02:30 BP 107 / 58; Pulse 93; Resp 18; Pulse Ox 94% on R/A; nn1 06:15 BP 108 / 73; Pulse 93; Resp 18; Temp 97.1(T); Pulse Ox 97% ; Pain 0/10; mas 10:15 BP 142 / 86; Pulse 91; Resp 16; Temp 97.2(T); Pulse Ox 98% on R/A; dwg 13:52 BP 164 / 86; Pulse 107; Resp 16; Temp 97.5(O); Pulse Ox 97% on R/A; Pain 0/10; kpj 00:34 Body Mass Index 33.23 (111.13 kg, 182.88 cm) [facility] Vitals: 00:34 Log In time N/A- police car arrival. [facility] ED Course: 00:03 Patient visited by Clair Booth PCA. rs6 00:03 Patient moved to Waiting rs6 00:03 Patient moved to [facility] rs6 00:05 Meño Newman MD is Attending Physician. br1 00:07 Patient visited by Meño Newman MD. br1 00:16 Patient visited by Clair Booth PCA. rs6 00:33 Triage Initiated bcj 00:36 Appears restless. awaiting re-evaluation by ER physician. bcj 00:36 The patient / caregiver is instructed regarding the plan of care and ED course. Patient bcj has correct armband on for positive identification. Placed in gown. Placed in psych safe attire. Bed in low position. Adult w/ patient. Security observing. 00:36 Labs drawn. (by ED staff). Sent per order to lab. Urine collected. Clean catch [facility] specimen. Urine specimen sent to lab. 00:41 Patient visited by Leo Samuels RN. bcj 00:48 Patient visited by Leo Samuels RN. j 00:55 Pt greeted and oriented to ED. Patient advised of names of staff involved in care, [facility] location of call hernandez, wait times and NPO status. Accompanied by Law Enforcement, [employer] on , Patient has correct armband on for positive identification. Placed in psych safe attire. Bed in low position. Call light in reach. Side rails up X2. Security observing. Property removed, inventory done, secured in belongings bag- Placed in locker 5. Door closed. Noise minimized. Moved to private room. Verbal reassurance given. Warm blanket given. Pillow given. Psych Safety Check: Location: Psych Room. Visual Assessment: pt agitated, uncooperative upon arrival. 01:09 Patient visited by Sherley Barillas RN. nn1 01:17 Patient visited by Adams Paul. mas 01:32 Patient visited by Adams Paul. mas 01:48 Patient visited by Adams Paul. mas 02:02 Patient visited by Adams Paul. mas 02:19 Patient visited by Adams Paul. mas 02:32 Patient visited by Adams Paul. mas 02:46 Patient visited by Adams Paul. mas 03:02 Patient visited by Adams Paul. mas 03:24 Patient visited by Adams Paul. mas 03:39 Patient visited by Adams Paul. mas 03:51 Patient visited by Adams Paul. mas 04:00 Patient visited by Adams Paul. mas 04:15 Patient visited by Adams Paul. mas 04:37 Patient visited by Adams Paul. mas 04:55 Patient visited by Adams Paul. mas 05:00 Patient visited by Adams Paul. mas 05:20 Patient visited by Jonathan Liu. rn1 05:39 Patient visited by Adams Paul. mas 05:45 Patient visited by Adams Paul. mas 06:00 Patient visited by Adams Paul. mas 06:15 Patient visited by Adams Paul. mas 06:32 Patient visited by Adams Paul. mas 06:47 Patient visited by Adams Paul. mas 07:13 Attending Physician role handed off by Meño Newman MD sd1 07:13 Rosy Camacho MD is Attending Physician. sd1 07:20 Patient visited by Yeyo Rodriguez RN. dwg 07:37 Patient visited by Riky Crocker Security Aide. pjf 07:50 Patient visited by Riky Crocker Security Bhakti. pjf 08:08 Patient visited by Riky Crocker Security Aide. pjf 08:20 Patient visited by Riky Crocker Security Aide. pjf 08:41 Patient visited by Riky Crocker Security Aide. pjf 08:54 Patient visited by Riky Crocker Security Aide. pjf 08:54 Patient visited by Yeyo Rodriguez RN. dwg 09:14 Patient visited by Riky Crocker Security Aide. pjf 09:31 Patient visited by Riky Crocker Security Aide. pjf 09:45 Psych Safety Check: Location: Psych Room. Visual Assessment: Cooperative. pjf 10:00 Patient visited by Riky Crocker Security Aidal. pjf 10:15 Patient visited by Riky Crocker Security Aide. pjf 10:15 Patient visited by Yeyo Rodriguez RN. dwg 10:32 Patient visited by Riky Crocker Security Aide. pjf 10:44 Patient visited by Riky Crocker Security Aide. pjf 11:00 Patient visited by Pradeep Artis PCA. jrd 11:00 Psych Safety Check: Location: Psych Room. Visual Assessment:. jrd 11:01 Patient visited by Pradeep Artis PCA. jrd 11:14 Patient visited by Pradeep Artis PCA. jrd 11:15 Psych Safety Check: Location: Psych Room. Visual Assessment: Cooperative. jrd 11:18 Patient visited by Julia Post RN. ms18 11:29 Patient visited by Pradeep Artis PCA. jrd 11:30 Psych Safety Check: Location: Psych Room. Visual Assessment: Cooperative. jrd 11:45 Psych Safety Check: Location: Psych Room. Visual Assessment: Cooperative. jrd 12:00 Psych Safety Check: Location: Psych Room. Visual Assessment: Cooperative. jrd 12:11 Patient visited by Julia Post RN. ms18 12:15 Psych Safety Check: Location: Psych Room. Visual Assessment: Cooperative. jrd 12:38 [facility] Legal paperwork was scanned into [employer] and attached to record. jfb 12:45 Psych Safety Check: Location: Psych Room. Visual Assessment:. jrd 13:00 Psych Safety Check: Location: Psych Room. Visual Assessment: Cooperative. nb2 13:03 [facility] sd1 13:08 Patient visited by Salima Valdovinos. nb2 13:15 Patient visited by Salima Valdovinos. nb2 13:15 Psych Safety Check: Location: Psych Room. Visual Assessment: Cooperative. nb2 13:30 Psych Safety Check: Location: Psych Room. Visual Assessment: Cooperative. jrd 13:34 Patient visited by Pradeep Artis PCA. jrd 13:52 No apparent distress. Resting quietly. kpj 13:52 The patient / caregiver is instructed regarding the plan of care and ED course. Diet: [facility] Patient given regular meal. Tolerated well. 13:52 No IV's were initiated during this patient's visit. No procedures done that require [facility] assistance. 14:05 [facility] [place] Agreement was scanned into [employer] and attached to record. mm15 01/13 09:02 T-Sheet-- Draft Copy was scanned into [employer] and attached to record. lg Restraints: 01/11 00:40 Restraint order obtained from Meño Newman MD bcrenea Implementation: Restrained without trying less restrictive methods because pt was physically combative, Restraints applied at 12:30 Notification of restraint use: Charge Nurse. Vital Signs: See Trend VS for complete VS information Assessment: Respirations: Regular Skin Integrity: Intact Circulation: Unrestricted. ROM: ROM exercises are contraindicated at this time. Toileting: offered, provided, Mental Status: Alert. 01:08 Restraints discontinued at 00:50 at the order of Meño Newman MD Patient was given nn1 chemical restraint. No order to discontinue required. Administered Medications: 00:30 Drug: -Haloperidol Lactate 5 mg [haloperidol lactate 5 mg/mL injection solution (1 mL)] bcj Route: IM; Site: right gluteus; 00:30 Drug: LORazepam 2 mg [lorazepam 2 mg/mL injection solution (1 mL)] Route: IM; Site: bcj right gluteus; Attachments: 12:38 [facility] Legal paperwork jfb Order Results: Lab Order: Acetaminophen Level; SPEC'M 01/11/17 00:28 Test: ACETAMINOPHEN LEVEL; Value: < 2.0; Range: 10.0-30.0; Abnormal: Below low normal; Units: UG/ML; Status: F Lab Order: Basic Metabolic Profile; SPEC'M 01/11/17 00:28 Test: GLUCOSE, FASTING; Value: 95; Range: 70-105; Units: MG/DL; Status: F Test: BLOOD UREA NITROGEN; Value: 16; Range: 7-18; Units: MG/DL; Status: F Test: CREATININE FOR GFR; Value: 1.02; Range: 0.70-1.30; Units: MG/DL; Status: F Test: GLOMERULAR FILTRATION RATE; Value: > 60.0; Range: >60; Status: F Test: SODIUM LEVEL; Value: 142; Range: 136-145; Units: MEQ/L; Status: F Test: POTASSIUM SERUM; Value: 4.0; Range: 3.5-5.1; Units: MEQ/L; Status: F Test: CHLORIDE LEVEL; Value: 106; Range: 98-107; Units: MEQ/L; Status: F Test: CARBON DIOXIDE LEVEL; Value: 28; Range: 21-32; Units: MEQ/L; Status: F Test: ANION GAP; Value: 8; Range: 8-16; Units: MEQ/L; Status: F Test: CALCIUM LEVEL; Value: 8.7; Range: 8.5-10.1; Units: MG/DL; Status: F Test Note: ; Units are mL/min/1.73 m2 Chronic Kidney Disease Staging per NKF: Stage I & II GFR >=60 Normal to Mildly Decreased Stage III GFR 30-59 Moderately Decreased Stage IV GFR 15-29 Severely Decreased Stage V GFR <15 Very Little GFR Left ESRD GFR <15 on LEGAL ADMINISTRATIVE ASSISTANT Lab Order: Complete Blood Count; SPEC'M 01/11/17 00:28 Test: WHITE BLOOD COUNT; Value: 9.7; Range: 4.0-10.0; Units: K/mm3; Status: F Test: RED BLOOD COUNT; Value: 5.13; Range: 4.30-6.10; Units: M/mm3; Status: F Test: HEMOGLOBIN; Value: 15.2; Range: 14.0-18.0; Units: g/dl; Status: F Test: HEMATOCRIT; Value: 46.0; Range: 42.0-52.0; Units: %; Status: F Test: MEAN CORPUSCULAR VOLUME; Value: 89.7; Range: 80.0-96.0; Units: fl; Status: F Test: MEAN CORPUSCULAR HEMOGLOBIN; Value: 29.6; Range: 27.0-33.0; Units: pg; Status: F Test: MEAN CORPUSCULAR HGB CONC; Value: 33.1; Range: 32.0-36.5; Units: g/dl; Status: F Test: RED CELL DISTRIBUTION WIDTH; Value: 13.7; Range: 11.5-14.5; Units: %; Status: F Test: PLATELET COUNT, AUTOMATED; Value: 337; Range: 150-450; Units: k/mm3; Status: F Lab Order: Drug Eval Toxicology ED Only; SPEC'M 01/11/17 00:28 Test: AMPHETAMINES LEVEL URINE; Value: NEGATIVE; Range: NEGATIVE; Status: F Test: BARBITURATES URINE; Value: NEGATIVE; Range: NEGATIVE; Status: F Test: BENZODIAZEPINES URINE; Value: NEGATIVE; Range: NEGATIVE; Status: F Test: CANNABINOIDS URINE; Value: NEGATIVE; Range: NEGATIVE; Status: F Test: COCAINE METABOLITE URINE; Value: NEGATIVE; Range: NEGATIVE; Status: F Test: METHADONE URINE; Value: NEGATIVE; Range: NEGATIVE; Status: F Test: OPIATES URINE; Value: NEGATIVE; Range: NEGATIVE; Status: F Test: TRICYCLIC ANTIDEPRESS URINE; Value: NEGATIVE; Range: NEGATIVE; Status: F Test Note: ; ALL PRESUMPTIVE POSITIVE FINDINGS ARE UNCONFIRMED NORMAL VALUES THRESHOLD IN NG/ML AMPHETAMINES 1000 METHAMPHETAMINES 1000 BARBITURATES 300 BENZODIAZEPINES 300 CANNABINOIDS (THC) 50 COCAINE METABOLITE 300 METHADONE 300 OPIATES 300 PHENCYCLIDINE 25 TRICYCLIC ANTIDEPRESSANTS 1000 RESULTS ARE FOR MEDICAL PURPOSES ONLY. ALL URINE SPECIMENS WILL BE SAVED FOR 3 DAYS. IF CONFIRMATION OF A PRESUMPTIVE POSTIVE SCREEN RESULT IS DESIRED, CALL CHEMISTRY ([phone]) AND REQUEST URINE TO BE SENT TO REFERENCE LAB. FOR A LIST OF CLOSELY RELATED COMPOUNDS PLEASE CALL THE LAB. Lab Order: Ethyl Alcohol (ethanol); SPEC'M 01/11/17 00:28 Test: ETHYL ALCOHOL (ETHANOL); Value: 0.350; Range: 0.000-0.010; Abnormal: Above high normal; Units: %; Status: F Lab Order: Liver Profile; SPEC' 01/11/17 00:28 Test: AST/SGOT; Value: 43; Range: 15-37; Abnormal: Above high normal; Units: U/L; Status: F Test: ALT/SGPT; Value: 43; Range: 12-78; Units: U/L; Status: F Test: ALKALINE PHOSPHATASE; Value: 89; Range: 45-117; Units: U/L; Status: F Test: BILIRUBIN,TOTAL; Value: 0.2; Range: 0.2-1.0; Units: MG/DL; Status: F Test: BILIRUBIN,DIRECT; Value: 0.1; Range: 0.0-0.2; Units: MG/DL; Status: F Test: TOTAL PROTEIN; Value: 7.9; Range: 6.4-8.2; Units: GM/DL; Status: F Test: ALBUMIN; Value: 4.3; Range: 3.2-5.2; Units: GM/DL; Status: F Test: ALBUMIN/GLOBULIN RATIO; Value: 1.19; Range: 1.00-1.93; Status: F Lab Order: Salicylate Level; SPEC' 01/11/17 00:28 Test: SALICYLATE LEVEL; Value: 2.9; Range: 5.0-30.0; Abnormal: Below low normal; Units: MG/DL; Status: F Lab Order: Thyroid Stimulating Hormone; SPEC' 02/22/17 00:28 Test: THYROID STIMULATING HORMONE; Value: 3.040; Range: 0.358-3.740; Units: uIU/ML; Status: F Outcome: 01/11 13:03 Discharge ordered by Provider. sd1 13:52 Discharge Assessment: Patient awake, alert and oriented x 3. No cognitive and/or kpj functional deficits noted. Patient verbalized understanding of disposition instructions. patient administered narcotics - yes. Pt provided with safe discharge. The following High Risk Discharge criteria are identified: None. Discharged to home ambulatory, with specialist Any. Condition: stable. Discharge instructions given to patient, Instructed on discharge instructions, follow up and referral plans. Demonstrated understanding of instructions, Pt was receptive of discharge instructions/ teaching. No special radiology studies were completed. 13:56 Patient left the ED. [facility] Signatures: Rosy Camacho MD MD sd1 Yeyo Rodriguez, RN RN Janessa Palencia RN RN [facility] Leo Samuels, RN RN j Amado, Charli, PSA PSA cl Miguelito Diaz, Reg Reg lg Lizzette, Riky, Security Aide [facility] Meño Newman MD MD br1 Caren Prescott, PSA PSA jfb Adams Paul Marlynn mm15 Julia Post,RN RN ms18 Pradeep Artis, TAILING MACHINE OPERATOR TAILING MACHINE OPERATOR jrd Clair Booth, TAILING MACHINE OPERATOR TAILING MACHINE OPERATOR rs6 Jonathan Liu rn1 Sherley Barillas,RN RN nn1 Salima Valdovinos2 Corrections: (The following items were deleted from the chart) 13:27 13:25 Psych Safety Check: Location: Psych Room. Visual Assessment: kwaku Garza 13:31 13:30 Psych Safety Check: Location: Psych Room. Visual Assessment: kwaku Garza Chart Complete MTDD
--- NOTE | 2017-01-13 14:56 | EDDOCDS ---
Physician Documentation [facility] Name: Masood Young Age: 26 yrs Sex: Male : 1990 Arrival Date: 01/11/2017 Time: 00:02 Bed [facility] Private MD: Disposition: 01/11/17 13:03 Discharged to Home/Self Care. Impression: Alcohol use, unspecified with intoxication. - Condition is Stable. - Discharge Instructions: Alcohol Intoxication. - Medication Reconciliation, Local Pharmacy Hours form. - Follow up: Ivania Cai, [facility]; When: Upon discharge from the Emergency Department. - Problem is new. - Symptoms are resolved. Historical: - Allergies: no known allergies; - Home Meds: 1. none - PMHx: none; - PSHx: none; - Social history: Smoking status: Patient uses tobacco products, current every day smoker. No barriers to communication noted, The patient speaks fluent Omani, Speaks appropriately for age. - Family history: Not pertinent. - : The pt / caregiver states he / she is not on anticoagulants. Home medication list is obtained from the patient. - Exposure Risk Screening:: None identified. Vital Signs: 01/11 00:34 BP 142 / 85; Pulse 95; Resp 16; Temp 98; Pulse Ox 97% on R/A; Weight 111.13 kg / 245 bcj lbs; Height 6 ft. 0 in. (182.88 cm); Pain 0/10; 00:47 BP 149 / 78; Pulse 100; Resp 18; Pulse Ox 94% on R/A; bcj 01:03 BP 120 / 55; Pulse 97; Resp 18; Pulse Ox 94% on R/A; nn1 01:15 BP 116 / 56; Pulse 93; Resp 18; Pulse Ox 93% on R/A; nn1 01:30 BP 105 / 54; Pulse 94; Resp 18; Pulse Ox 94% on R/A; nn1 01:45 BP 109 / 56; Pulse 97; Resp 20; Pulse Ox 92% on R/A; nn1 02:00 BP 131 / 58; Pulse 97; Resp 18; Pulse Ox 93% on R/A; nn1 02:15 BP 119 / 57; Pulse 93; Resp 18; Pulse Ox 94% on R/A; nn1 02:30 BP 107 / 58; Pulse 93; Resp 18; Pulse Ox 94% on R/A; nn1 06:15 BP 108 / 73; Pulse 93; Resp 18; Temp 97.1(T); Pulse Ox 97% ; Pain 0/10; mas 10:15 BP 142 / 86; Pulse 91; Resp 16; Temp 97.2(T); Pulse Ox 98% on R/A; dwg 13:52 BP 164 / 86; Pulse 107; Resp 16; Temp 97.5(O); Pulse Ox 97% on R/A; Pain 0/10; kpj 00:34 Body Mass Index 33.23 (111.13 kg, 182.88 cm) bcj MDM: 00:05 Consult PFS/PSA/Cross Enterprise Integrator ordered. br1 00:05 Consult PFS/PSA/Cross Enterprise Integrator: Patient's case requires discussion with on-call [facility] Psychiatrist ordered. 00:05 PSA/PFS to call Nursing Pv Installer Tech, to enter patient data on [facility] Safe Act if patient br1 involuntarily admitted or transferred for SI or HI ordered. 00:05 Confirm accurate psychiatric medication list and times of last dosage ordered. br1 00:05 Detain Pt Until Medically/PFS Cleared ordered. br1 00:06 -Haloperidol Lactate 5 mg IM once ordered. br1 00:06 LORazepam 2 mg IM once ordered. br1 00:06 Restraints, Adult: Chemical - Meds as ordered (poses imminent danger of harming br1 others). May use manual restraints to ensure safe admin. of meds. Pt. monitoring for min. of 2 hrs per RN policy. ordered. 00:07 Acetaminophen Level Ordered. EDMS 00:07 Basic Metabolic Profile Ordered. EDMS 00:07 Complete Blood Count Ordered. EDMS 00:07 Drug Eval Toxicology ED Only Ordered. EDMS 00:07 Ethyl Alcohol (ethanol) Ordered. EDMS 00:07 Liver Profile Ordered. EDMS 00:07 Salicylate Level Ordered. EDMS 00:07 Thyroid Stimulating Hormone Ordered. EDMS 00:42 Consult PFS/PSA/Cross Enterprise Integrator complete. bcj 00:43 Consult PFS/PSA/Cross Enterprise Integrator: Patient's case requires discussion with on-call [facility] Psychiatrist complete. 01:33 Acetaminophen Level Reviewed. br1 01:33 Ethyl Alcohol (ethanol) Reviewed. br1 01:33 Liver Profile Reviewed. br1 01:33 Salicylate Level Reviewed. br1 01:33 Basic Metabolic Profile Reviewed. br1 01:33 Complete Blood Count Reviewed. br1 01:33 Drug Eval Toxicology ED Only Reviewed. br1 01:33 Thyroid Stimulating Hormone Reviewed. br1 04:20 REGULAR DIET PLASTIC BEST+DIET ordered. EDMS 09:39 Financial registration complete. mm15 11:20 REGULAR DIET PLASTIC BEST+DIET ordered. EDMS 12:38 [facility] Legal paperwork was scanned into [employer] and attached to record. jfb 13:14 PSA/PFS to call Nursing Pv Installer Tech, to enter patient data on [place] Safe Act if patient jfb involuntarily admitted or transferred for SI or HI complete. 14:05 [facility] Payment Agreement was scanned into [employer] and attached to record. mm15 01/13 09:02 T-Sheet-- Draft Copy was scanned into [employer] and attached to record. lg Administered Medications: 01/11 00:30 Drug: -Haloperidol Lactate 5 mg [haloperidol lactate 5 mg/mL injection solution (1 mL)] [facility] Route: IM; Site: right gluteus; 00:30 Drug: LORazepam 2 mg [lorazepam 2 mg/mL injection solution (1 mL)] Route: IM; Site: bcj right gluteus; Signatures: Dispatcher [employer] EDRosy Cruz MD MD sd1 Janessa Burr RN RN Leo Seay RN RN bcMiguelito Hobbs, Daniel Reg lg Meño Newman MD MD br1 Caren Prescott, PSA PSA jfb Christin Acosta mm15 The chart was reviewed and I authenticate all verbal orders and agree with the evaluation and treatment provided.Attachments: 14:05 [facility] Payment Agreement 15 01/13 09:02 T-Sheet-- Draft Copy lg Chart Complete MTDD
--- NOTE | 2017-01-13 14:56 | EDDOCDS ---
Physician Documentation [facility] Name: Masood Young Age: 26 yrs Sex: Male : 1990 Arrival Date: 01/11/2017 Time: 00:02 Bed [facility] Private MD: Disposition: 01/11/17 13:03 Discharged to Home/Self Care. Impression: Alcohol use, unspecified with intoxication. - Condition is Stable. - Discharge Instructions: Alcohol Intoxication. - Medication Reconciliation, Local Pharmacy Hours form. - Follow up: Ivania Cai, [facility]; When: Upon discharge from the Emergency Department. - Problem is new. - Symptoms are resolved. Historical: - Allergies: no known allergies; - Home Meds: 1. none - PMHx: none; - PSHx: none; - Social history: Smoking status: Patient uses tobacco products, current every day smoker. No barriers to communication noted, The patient speaks fluent Mauritian, Speaks appropriately for age. - Family history: Not pertinent. - : The pt / caregiver states he / she is not on anticoagulants. Home medication list is obtained from the patient. - Exposure Risk Screening:: None identified. Vital Signs: 01/11 00:34 BP 142 / 85; Pulse 95; Resp 16; Temp 98; Pulse Ox 97% on R/A; Weight 111.13 kg / 245 bcj lbs; Height 6 ft. 0 in. (182.88 cm); Pain 0/10; 00:47 BP 149 / 78; Pulse 100; Resp 18; Pulse Ox 94% on R/A; bcj 01:03 BP 120 / 55; Pulse 97; Resp 18; Pulse Ox 94% on R/A; nn1 01:15 BP 116 / 56; Pulse 93; Resp 18; Pulse Ox 93% on R/A; nn1 01:30 BP 105 / 54; Pulse 94; Resp 18; Pulse Ox 94% on R/A; nn1 01:45 BP 109 / 56; Pulse 97; Resp 20; Pulse Ox 92% on R/A; nn1 02:00 BP 131 / 58; Pulse 97; Resp 18; Pulse Ox 93% on R/A; nn1 02:15 BP 119 / 57; Pulse 93; Resp 18; Pulse Ox 94% on R/A; nn1 02:30 BP 107 / 58; Pulse 93; Resp 18; Pulse Ox 94% on R/A; nn1 06:15 BP 108 / 73; Pulse 93; Resp 18; Temp 97.1(T); Pulse Ox 97% ; Pain 0/10; mas 10:15 BP 142 / 86; Pulse 91; Resp 16; Temp 97.2(T); Pulse Ox 98% on R/A; dwg 13:52 BP 164 / 86; Pulse 107; Resp 16; Temp 97.5(O); Pulse Ox 97% on R/A; Pain 0/10; kpj 00:34 Body Mass Index 33.23 (111.13 kg, 182.88 cm) bcj MDM: 00:05 Consult PFS/PSA/Printer Slotter Operator ordered. br1 00:05 Consult PFS/PSA/Printer Slotter Operator: Patient's case requires discussion with on-call [facility] Psychiatrist ordered. 00:05 PSA/PFS to call Nursing Modeling And Simulation Analyst, to enter patient data on [facility] Safe Act if patient br1 involuntarily admitted or transferred for SI or HI ordered. 00:05 Confirm accurate psychiatric medication list and times of last dosage ordered. br1 00:05 Detain Pt Until Medically/PFS Cleared ordered. br1 00:06 -Haloperidol Lactate 5 mg IM once ordered. br1 00:06 LORazepam 2 mg IM once ordered. br1 00:06 Restraints, Adult: Chemical - Meds as ordered (poses imminent danger of harming br1 others). May use manual restraints to ensure safe admin. of meds. Pt. monitoring for min. of 2 hrs per RN policy. ordered. 00:07 Acetaminophen Level Ordered. EDMS 00:07 Basic Metabolic Profile Ordered. EDMS 00:07 Complete Blood Count Ordered. EDMS 00:07 Drug Eval Toxicology ED Only Ordered. EDMS 00:07 Ethyl Alcohol (ethanol) Ordered. EDMS 00:07 Liver Profile Ordered. EDMS 00:07 Salicylate Level Ordered. EDMS 00:07 Thyroid Stimulating Hormone Ordered. EDMS 00:42 Consult PFS/PSA/Printer Slotter Operator complete. bcj 00:43 Consult PFS/PSA/Printer Slotter Operator: Patient's case requires discussion with on-call [facility] Psychiatrist complete. 01:33 Acetaminophen Level Reviewed. br1 01:33 Ethyl Alcohol (ethanol) Reviewed. br1 01:33 Liver Profile Reviewed. br1 01:33 Salicylate Level Reviewed. br1 01:33 Basic Metabolic Profile Reviewed. br1 01:33 Complete Blood Count Reviewed. br1 01:33 Drug Eval Toxicology ED Only Reviewed. br1 01:33 Thyroid Stimulating Hormone Reviewed. br1 04:20 REGULAR DIET PLASTIC BEST+DIET ordered. EDMS 09:39 Financial registration complete. mm15 11:20 REGULAR DIET PLASTIC BEST+DIET ordered. EDMS 12:38 [facility] Legal paperwork was scanned into [employer] and attached to record. jfb 13:14 PSA/PFS to call Nursing Modeling And Simulation Analyst, to enter patient data on [place] Safe Act if patient jfb involuntarily admitted or transferred for SI or HI complete. 14:05 [facility] Payment Agreement was scanned into [employer] and attached to record. mm15 01/13 09:02 T-Sheet-- Draft Copy was scanned into [employer] and attached to record. lg Administered Medications: 01/11 00:30 Drug: -Haloperidol Lactate 5 mg [haloperidol lactate 5 mg/mL injection solution (1 mL)] [facility] Route: IM; Site: right gluteus; 00:30 Drug: LORazepam 2 mg [lorazepam 2 mg/mL injection solution (1 mL)] Route: IM; Site: bcj right gluteus; Signatures: Dispatcher [employer] EDRosy Cruz MD MD sd1 Janessa Burr RN RN Leo Seay RN RN bcMiguelito Hobbs, Daniel Reg lg Meño Newman MD MD br1 Caren Prescott, PSA PSA jfb Christin Acosta mm15 The chart was reviewed and I authenticate all verbal orders and agree with the evaluation and treatment provided.Attachments: 14:05 [facility] Payment Agreement 15 01/13 09:02 T-Sheet-- Draft Copy lg Chart Complete MTDD
== END 2017-01-11 13:56 | disposition home or self-care (01) ==
LOC: M ED 00:02
DX: F10.220 Alcohol dependence with intoxication, uncomplicated (principal); F17.210 Nicotine dependence, cigarettes, uncomplicated
CPT/HCPCS: 36415; 80048; 80076; 80306; 84443; 85027; 96372; 99285; G0480; J1630; J2060

== ENCOUNTER 2017-04-18 16:13 | Emergency (ER) | payer OTHER ==
[~2017-04-18] VITALS: Ht 180.3 cm; Wt 95.3 kg
[2017-04-18] MEDS ORDERED: SERO200T PO (16:20)
[2017-04-18] MEDS ORDERED: TRAZ150T14 PO (16:20)
[2017-04-18] MEDS ORDERED: IBUPROFEN 600 MG TAB PO ONE (16:45)
[2017-04-18] MEDS ORDERED: IBUP600T26 PO (17:16)
[2017-04-18] MEDS ORDERED: CYCL10TA PO (17:16)
[2017-04-18 17:28] VITALS: BP 146/74
--- NOTE | 2017-04-18 17:37 | REP ---
LEFT RIB SERIES: Five views of the left ribs performed and demonstrates no fracture or bone lesion. An accompanying view of the chest demonstrates no acute infiltrate or pneumothorax. There is no pleural effusion. IMPRESSION: Negative left rib series. Signed by Yeyo Cam MD 04/20/2017 07:01 P
== END 2017-04-18 17:36 | disposition home or self-care (01) ==
LOC: M ED 17:27
DX: S29.011A Strain of muscle and tendon of front wall of thorax, initial encounter (principal); X50.0XXA Overexertion from strenuous movement or load, initial encounter; Y92.39 Other specified sports and athletic area as the place of occurrence of the external cause; Y93.89 Activity, other specified; Y99.9 Unspecified external cause status; R07.89 Other chest pain; Z79.899 Other long term (current) drug therapy

== ENCOUNTER 2017-10-09 01:50 | Emergency (ER) | payer OTHER ==
[~2017-10-09] VITALS: Ht 180.3 cm; Wt 100.0 kg
[~2017-10-09 01:50] MED LIST: CYCL10TA PO; IBUP-1022 PO; IBUP80TA PO; NAPR500T PO; PROZ20CA11 PO; SERO200T PO; TRAZ1TAB14 PO; VALI5TAB PO
[2017-10-09] MEDS ORDERED: ZOLP10TA2 (02:03)
[2017-10-09] MEDS ORDERED: HYDR1CAP25 (02:03)
[2017-10-09] MEDS ORDERED: SUMA50TA2 (02:03)
[2017-10-09] MEDS ORDERED: LORazepam 1 MG TAB PO ONE (02:30)
[2017-10-09] MEDS ORDERED: LORazepam 2 MG/ML VIAL (J2060) IM STA (03:15)
[2017-10-09] MEDS ORDERED: ATIV1TAB7 PO (06:04)
[2017-10-09 06:13] VITALS: BP 136/68
--- NOTE | 2017-10-10 05:36 | ECGEPIP ---
Stationary ECG Study [facility] - ED Test Date: 2017-10-09 Pat Name: RIC JAY Department: Room: - Gender: M Shoe Lacer: gilmar : 1990 Requested By: BEN Nguyen Order Number: [id number] Reading MD: Lew Coffman Measurements Intervals [place] Rate: 103 P: 66 VT: 166 QRS: 32 QRSD: 84 T: 47 QT: 332 QTc: 435 Interpretive Statements SINUS TACHYCARDIA NO PRIORS FOR COMPARISON Electronically Signed On 10-10-2017 5:36:34 EST by Lew Coffman
== END 2017-10-09 06:18 | disposition home or self-care (01) ==
LOC: M ED 01:50
DX: F41.0 Panic disorder [episodic paroxysmal anxiety] (principal)
CPT/HCPCS: 93005; 96372; 99284; J2060